=== PATIENT | female | born 1960 | race Caucasian/White ===

== ENCOUNTER 2021-12-03 18:06 | Emergency (ER) | payer BC, SELFPAY ==
--- NOTE | ~2021-12-03 | XR_ITS ---
EXAMINATION: XR chest 2V DATE: 12/03/2021 18:40 INDICATION: Chest pain TECHNIQUE: PA and lateral views of the chest were obtained. COMPARISON: None FINDINGS: Linear opacities at the anterior left lung base consistent with mild lingular discoid atelectasis. No other airspace opacities, pulmonary edema, pleural effusion or pneumothorax. Cardiomediastinal silho uette is normal. Mild thoracic spondylosis. IMPRESSION: 1. Mild lingular atelectasis. Reviewed, dictated and finalized at location A.
--- NOTE | 2021-12-03 18:11 | ECG_ITS ---
Measurements Intervals [place] Rate: 107 P: 22 PA: 134 QRS: 7 QRSD: 75 T: -12 QT: 306 QTc: 410 Interpretive Statements SINUS TACHYCARDIA CONSIDER INFERIOR INFARCT, AGE INDETERMINATE BASELINE ARTIFACT- I, II, III, AVR, AVL, AVF, V4, V6 ABNORMAL ECG NO PREVIOUS ECG AVAILABLE FOR COMPARISON Electronically Signed On 12-03-2021 18:52:05 CDT by Emmett Garcia D.O.
--- NOTE | 2021-12-03 18:13 | PC.NURSE ---
patient and patient's son request that patient get an ambulance ride to [place] due to patient always going there, both individuals told that we are unable to transfer patient out of waiting room without medical diagnosis or triage assessment.
--- NOTE | 2021-12-03 18:16 | PC.NURSE ---
[facility]- [facility] [phone]
[2021-12-03 18:17] VITALS: BP 150/84; PULSE 99; RESP 18; TEMP 36.4; O2SAT 100
[2021-12-03 18:37] LABS: Basophils Absolute Auto 0.1 K/mm3 (0.0-0.1); Basophils Percent Auto 1.2 % (0.2-1.2); Eosinophils Absolute Auto 0.2 K/mm3 (0-0.3); Hematocrit 50.7 % (37.0-47.0); Hemoglobin 15.1 g/dL (12.0-15.0); Immature Granulocyte Absolute 0.03 K/mm3 (0.00-0.031); Immature Granulocyte Percent A 0.3 % (0-0.5); Lymphocytes Absolute Auto 3.42 K/mm3 (0.9-3.2); Mean Corpuscular HGB Conc 29.8 g/dl (32-36); Mean Corpuscular Hemoglobin 27.7 pg (26-34); Monocytes Absolute Auto 1.1 K/mm3 (0.1-0.6); Monocytes Percent Auto 9.8 % (2.6-8.5); Neutrophils Absolute Auto 6.2 K/mm3 (1.3-6.7); Neutrophils Percent Auto 55.7 % (45.5-73.1); Platelet Count Result 248 k/mm3 (150-375); Red Blood Count 5.45 M/mm3 (4.2-5.4); Red Cell Distribution Width 15.3 % (11.5-14.5)
[2021-12-03 19:19] LABS: Hypochromasia 1+ (NORMAL); Platelet Estimate Adequate (Adequate)
[2021-12-03 20:02] LABS: Alanine Aminotransferase 53 U/L (6-35); Albumin Level 4.7 g/dL (3.5-5.1); Alkaline Phosphatase 90 U/L (38-126); Anion Gap 10 mmol/L (8-16); Aspartate Amino Transferase 49 U/L (14-36); Bilirubin,Total 0.5 mg/dL (0.2-1.3); Blood Urea Nitrogen 9 mg/dL (7-17); Calcium 9.4 mg/dL (8.4-10.2); Carbon Dioxide 22 mmol/L (22-30); Chloride 108 mmol/L (98-107); Estimated CRCL calculation 84 ml/min; Estimated Glomerular Filt Rate > 60; Glucose 95 mg/dL (65-110); Lipase 172 U/L (23-300); Sodium 140 mmol/L (137-145)
[2021-12-03 20:14] LABS: Troponin I < 0.012 ng/mL (0.000-0.034)
[2021-12-03] MEDS: ASPIRIN 81 MG CHEWABLE TABLET 324 MG PO (21:12)
[2021-12-03 21:13] VITALS: PULSE 100
--- NOTE | 2021-12-03 21:20 | ED.GENADULT ---
HPI - General Adult General Chief complaint: Chest Pain Stated complaint: Chest Pain Time Seen by Provider: 12/03/21 21:02 History of Present Illness HPI narrative: 61-year-old female presented emergency department for evaluation of sharp intermittent left-sided chest pain that started this morning. Patient states throughout the course of the day with movement or with deep inspiration. Having reproducible left-sided chest pain. Patient denies any significant prior history of MA. Patient denies any prior history of PE or DVT. Patient states he did have a stress test approximately 10 years ago. Related Data Home Medications Medication Instructions Recorded Confirmed cephalexin 500 mg capsule 500 mg PO Q6H 11/14/20 Allergies Allergy/AdvReac Type Severity Reaction Status Date / Time No Known Allergies Allergy Verified 12/03/21 18:20 Review of Systems Review of Systems: CONSTITUTIONAL: Denies fever, chills, or sweats. EYES: Denies visual changes, redness, or discharge. ENT: Denies rhinorrhea, congestion, sore throat, or otalgia. CARDIOVASCULAR: Denies chest pain, palpitations, or edema. RESPIRATORY: Denies cough or dyspnea. GASTROINTESTINAL: Denies abdominal pain, nausea, vomiting, or diarrhea. GENITOURINARY: Denies dysuria or hematuria. SKIN: Denies rash or itching. MUSCULOSKELETAL: Denies back pain, joint pain, or myalgia. NEUROLOGIC: Denies headache, numbness, or weakness. [facility] Surgical History Surgical History History of section Social History Social History Smoking status: Never smoker Alcohol intake: current Exam Narrative: APPEARANCE: Well appearing, no pain, no distress, well-nourished. HEAD: normocephalic, atraumatic. EYES: PERRLA/EOMI, conjunctivae clear. NOSE: Normal no drainage EARS:TMS clear with good light reflex. NECK: Supple. No adenopathy, no masses. RESPIRATORY: Airway patent, respirations nonlabored. Clear to auscultation bilaterally, no rales, rhonchi, wheezing. CARDIOVASCULAR: Regular rate and rhythm without murmurs rubs or gallops. Reproducible left-sided chest wall tenderness to palpation ABDOMINAL: Soft, nontender, nondistended, normal bowel sounds MUSCULOSKELETAL: Moves all extremities. Strength/ROM intact, No edema, No calf tenderness. NEURO: Alert. Cranial nerves II through XII intact. Grossly intact SKIN: Warm, dry. Normal Color Course Course Emergency Course: Patient is having reversible apical chest pain. Patient states her pain is worsened with movement. Patient had negative serial troponins, chest x-ray showed no acute cardiopulmonary abnormality. EKG showed normal sinus rhythm with no ST changes. Patient's D-dimer was within normal limits. Patient states she does feel improved with the Toradol. Patient was educated on importance of close follow-up with her primary care physician and on the importance of return to the emergency department for any worsening symptoms. All questions and concerns were addressed. Patient was comfortable with the plan for discharge and close follow-up. Vital Signs Vital signs: Vital Signs Temperature 97.5 F L 12/03/21 18:17 Pulse Rate 99 12/03/21 18:17 Respiratory Rate 18 12/03/21 18:17 Blood Pressure 150/84 H 12/03/21 18:17 Pulse Oximetry 100 12/03/21 18:17 Oxygen Delivery Room Air 12/03/21 18:17 Temperature 97.5 F L 12/03/21 18:17 Pulse Rate 93 12/04/21 00:20 Respiratory Rate 16 12/04/21 00:20 Blood Pressure 122/73 12/04/21 00:20 Pulse Oximetry 96 12/04/21 00:20 Oxygen Delivery Room Air 12/03/21 23:21 Medical Decision Making Vital Signs Vital Signs: Vital Signs Temperature 97.5 F L 12/03/21 18:17 Pulse Rate 99 12/03/21 18:17 Respiratory Rate 18 12/03/21 18:17 Blood Pressure 150/84 H 12/03/21 18:17 Pulse Oximetry 100 12/03/21 18:17 Oxygen
[2021-12-03 22:41] LABS: Prothrombin Time 12.6 Seconds (11.1-14.7)
[2021-12-03 22:42] LABS: Partial Thromboplastin Time 28.7 SECONDS (22.3-36.8)
[2021-12-03 22:59] LABS: Troponin I < 0.012 ng/mL (0.000-0.034)
[2021-12-03 23:19] VITALS: BP 147/76; PULSE 97; RESP 16
[2021-12-03 23:21] VITALS: O2SAT 98
[2021-12-03 23:27] LABS: D Dimer 0.34 ug/mL (<0.48)
[2021-12-03] MEDS: KETOROLAC 15 MG/ML VIAL (*BKC) IV PUSH (23:42)
[2021-12-04 00:20] VITALS: BP 122/73; PULSE 93; RESP 16; O2SAT 96
== END 2021-12-04 00:25 | disposition home or self-care (01) ==
PROVIDERS: Emergency Medicine; Emergency Provider Emergency Medicine
DX: R07.89 Other chest pain (principal); R00.0 Tachycardia, unspecified; R94.31 Abnormal electrocardiogram [ECG] [EKG]
CPT/HCPCS: 36415; 71046; 80053; 83690; 84484; 85025; 85380; 85610; 85730; 93005; 96374; 99284; A9270; J1885